=== PATIENT | female | born 1995 | race Caucasian/White ===

== ENCOUNTER 2017-02-09 20:20 | Emergency (ER) | payer BC ==
[2017-02-09 20:39] VITALS: BP 114/82
--- NOTE | 2017-02-09 20:50 | UC ---
Complaint Female HPI - HPI Summary HPI Summary: Dysuria and blood in urine starting a week ago. Seemed to be going away with fluids and cranberry juice, now blood and pain returned today. Denies fever or vomiting. - History Of Current Complaint Chief Complaint: UCGU Stated Complaint: BLOOD IN URINE Time Seen by Provider: 02/09/17 20:28 Hx Obtained From: Patient Hx Last Menstrual Period: 01/20/17 ?: No Onset/Duration: Gradual Onset, Lasting Days Timing: Constant Severity Initially: Moderate Severity Currently: Mild Character: Burning Aggravating Factor(s): Urination Associated Signs And Symptoms: Positive: Negative - Allergies/Home Medications Allergies/Adverse Reactions: Allergies Allergy/AdvReac Type Severity Reaction Status Date / Time No Known Allergies Allergy Verified 02/09/17 20:38 PMH/Surg Hx/FS Hx/Imm Hx Previously Healthy: Yes - Surgical History Surgical History: Yes Surgery Procedure, Year, and Place: [id number]. lasik - Family History Known Family History: Positive: Hypertension - Social History Alcohol Use: Rare Substance Use Type: None Smoking Status (MU): Never Smoked Tobacco Review of Systems Constitutional: Negative Skin: Negative Eyes: Negative ENT: Negative Respiratory: Negative Cardiovascular: Negative Gastrointestinal: Negative Genitourinary: Dysuria, Hematuria, Frequency Motor: Negative Neurovascular: Negative Musculoskeletal: Negative Neurological: Negative Psychological: Negative All Other Systems Reviewed And Are Negative: Yes Physical Exam Triage Information Reviewed: Yes Appearance: Well-Appearing, No Pain Distress, Well-Nourished Vital Signs: Initial Vital Signs Temp 99.1 F 02/09/17 20:30 Pulse 102 02/09/17 20:30 Resp 18 02/09/17 20:30 BP 114/82 02/09/17 20:30 Pulse Ox 100 02/09/17 20:30 Vital Signs Reviewed: Yes Eye Exam: Normal Eyes: Positive: Conjunctiva Clear ENT Exam: Normal ENT: Positive: Normal ENT inspection, Hearing grossly normal, Pharynx normal, TMs normal Dental Exam: Normal Neck exam: Normal Respiratory Exam: Normal Respiratory: Positive: Chest non-tender, Lungs clear, Normal breath sounds, No respiratory distress, No accessory muscle use Cardiovascular Exam: Normal Cardiovascular: Positive: RRR, No Murmur Abdomen Description: Negative: CVA Tenderness (R), CVA Tenderness (L) Musculoskeletal Exam: Normal Neurological Exam: Normal Neurological: Positive: Alert Psychological Exam: Normal Skin Exam: Normal Complaint Female Dx - Differential Dx/Diagnosis Provider Diagnoses: UTI. Elevated blood pressure due to discomfort Discharge - Discharge Plan Condition: Stable Disposition: HOME Prescriptions: Nitrofurantoin Monohyd Macro [Macrobid] 100 mg PO BID #9 cap Patient Education Materials: Urinary Tract Infection in Women (ED) Additional Instructions: Call or come back if you do not have clear improvement in the next 2 days.
[2017-02-09] MEDS ORDERED: Nitrofurantoin Macrocrystals* 50 MG CAP PO ONE (20:51)
== END 2017-02-09 21:10 | disposition home or self-care (01) ==
LOC: UCEAST 20:20
DX: N39.0 Urinary tract infection, site not specified (principal); R03.0 Elevated blood-pressure reading, without diagnosis of hypertension
CPT/HCPCS: 81003; 84702; 87077; 87086; 87186; 99202; A9270-GY; G0463

== ENCOUNTER 2017-08-26 15:50 | Emergency (ER) | payer BC ==
[2017-08-26 16:03] VITALS: BP 106/67
--- NOTE | 2017-08-26 16:38 | UC ---
Complaint Female HPI - HPI Summary HPI Summary: 22 y/o female presents to the urgent care c/o RT eye redness and pain for the past 3 days. Pt also reports burning and frequency on urination for the past 2 days. Pt has not taken anything to alleviate symptoms. She states about 1 hr she noticed the red bump in her Rt lower eye lid burst and she has a yellowish drainage coming out. Pain is 4/10. Pt denies visual disturbance, fever, lower back pain, pelvic pain, vaginal discharge,SOB, chest pain, abdominal pain, N/V/ D. LMP: 08/20/2017, No Hx of STD's - History Of Current Complaint Chief Complaint: UCGU Stated Complaint: EYE IRRITATION, AND BURNING URINATION Time Seen by Provider: 08/26/17 16:18 Hx Obtained From: Patient Hx Last Menstrual Period: 08/20/17 ?: No Onset/Duration: Gradual Onset, Lasting Days - 3 days, Still Present, Worse Since - today Timing: Constant Severity Initially: Mild Severity Currently: Moderate Pain Intensity: 4 Pain Scale Used: 0-10 Numeric Character: Burning Aggravating Factor(s): Urination Alleviating Factor(s): Nothing Associated Signs And Symptoms: Positive: Negative. Negative: Fever, Back Pain, Vaginal Bleeding/Discharge, Vaginal Discharge, Genital Swelling - Risk Factors Ectopic Risk Factor: Negative - Allergies/Home Medications Allergies/Adverse Reactions: Allergies Allergy/AdvReac Type Severity Reaction Status Date / Time No Known Allergies Allergy Verified 08/26/17 15:59 PMH/Surg Hx/FS Hx/Imm Hx Previously Healthy: Yes - Pt denies PMHX - Surgical History Surgical History: Yes Surgery Procedure, Year, and Place: [id number]. lasik - Family History Known Family History: Positive: Hypertension, Diabetes Family History: Hypothyrodism - Social History Occupation: Student Lives: With Family Alcohol Use: Rare Substance Use Type: None Smoking Status (MU): Never Smoked Tobacco - Immunization History Vaccination Up to Date: Yes Review of Systems Constitutional: Negative Skin: Negative Eyes: Eye Redness - Rt lower wyw lid with redness, pain and purulent discharge ENT: Negative Respiratory: Negative Cardiovascular: Negative Gastrointestinal: Negative Genitourinary: Dysuria, Frequency Motor: Negative Neurovascular: Negative Musculoskeletal: Negative Neurological: Negative Psychological: Negative Is Patient Immunocompromised?: No All Other Systems Reviewed And Are Negative: Yes Physical Exam Triage Information Reviewed: Yes Vital Signs: Initial Vital Signs Temp 97.4 F 08/26/17 16:00 Pulse 90 08/26/17 16:00 Resp 20 08/26/17 16:00 BP 106/67 08/26/17 16:00 Pulse Ox 100 08/26/17 16:00 - Additional Comments Vital Signs Reviewed: Yes General: Well appearing, well nourished female in no apparent pain distress Eyes: Positive: Conjunctiva Inflamed - Visual acuity: WNL,Visual knox: full to confrontation.mild periorbital soft tissue swelling at the RT lower eyelid with erythema and and white small pustule in the interior medial side of eyelid with purulent discharge, tender to palpation. PERRLA, EOMI intact w/out limitation or complaint of pain. eyelashes clear. LF Eye WNL . No ciliary flush. No chemosis, No photophobia. Normal fundoscopic exam; no proptosis, exophthalmos, nystagmus. ENT: Positive: Normal ENT inspection, Hearing grossly normal, Pharynx normal, Nasal congestion, Nasal drainage - B/L external ear canal impactec with cerumen unable to see TM's, no Tonsillar swelling or exudate Neck: Positive: Supple, Nontender, No Lymphadenopathy Respiratory: Positive: Chest nontender, Lungs clear, Normal breath sounds, No respiratory distress Cardiovascular: Positive: RRR, No Murmur, Pulses Normal, Brisk Capillary Refill Abdomen Description: Positive: Nontender, No Organomegaly, Soft. Negative: CVA Tenderness (R), CVA Tenderness (L) Bowel Sounds: Positive: Present Musculoskeletal: Positive: Strength Intact, ROM Intact, No Edema Neurological Exam: Normal Psychological Exam: Normal Skin Exam: Normal Complaint Female Dx - Course Course Of Treatment: 22 y/o female presents to the urgent care c/o RT eye redness and pain for the past 3 days. Pt also reports burning and frequency on urination for the past 2 days. Pt has not taken anything to alleviate symptoms. She states about 1 hr she noticed the red bump in her Rt lower eye lid burst and she has a yellowish drainage coming out. Pain is 4/10. Pt denies visual disturbance, fever, lower back pain, pelvic pain, vaginal discharge, SOB, chest pain, abdominal pain, N/V/D.LMP;08/20/2017, No Hx of STD's. Hx obtained. Pt with a internal hordeolum, B/L exteranl ears with cerumen impaction and dysuria on examination. Pt given. Pt Rx Erythromycin Ophthalmic Ointment.First dose given here since she states she will travel to [facility] tomorrow and her medication is free there. PT advised to apply warm compresses and massage the eye with gentle pressure 4-5 times for 10-15min throughout the day. Then apply ABX and if not improvement of symptoms to f/u with exercise planner or PCP for further evaluation and treatment. AU: +leukoesteraces and blood. Pt will be Tx prophylactically for UTI. However erine sent for culture. Pt will be notified of results. Pt Rx Macrobid and Pyridium PO for Dysuria. PT understood and agreed with D/c instructions. - Differential Dx/Diagnosis Differential Diagnosis/HQI/PQRI: Cervicitis, Renal Colic, Sexually Transmitted Disease, Ureteral Stone, Urinary Tract Infection, Other - hordeolum, blepheritis , conjuntivitis Provider Diagnoses: 1- Dysuria. 2- RT inferior eyelid with internal hordeolum. 3-B/L external ear canals with cerumen impaction Discharge - Discharge Plan Condition: Stable Disposition: HOME Prescriptions: Carbamide Peroxide 6.5% OTIC* [DEBROX 6.5% Otic*] 5 drop BOTH EARS BID #1 bottle Erythromycin TOPICAL GEL* [Erythromycin OPTH OINT*] 1 applic TOPICAL TID #1 oint Nitrofurantoin Monohyd Macro [Macrobid] 100 mg PO BID #10 cap Phenazopyridine TAB* [Pyridium 100 mg TAB*] 100 mg PO TID #6 tab Patient Education Materials: Urinary Tract Infection in Women (ED), Cerumen Impaction (ED), Stye (ED) Referrals: [facility] [Outside] - If Needed Ruiz Granda MD [Medical Doctor] - If Needed Additional Instructions: 1- Please take Macrobid 100mg PO x 7 days. Pyridium 100 mg PO TID x 2 days to alleviate urinary symptoms. Increase increase fluid intake. drink cranberry juice. 2-Urine sent for culture if any abnormality, you will be notified for further treatment. 3-Please apply ophthalmic ointment in your son's RT eye as directed. Please apply warm compresses and massage the eye with gentle pressure 4-5 times for 10- 15min throughout the day 4- Apply otic drops on both ear as directed to soften the cerumen. 5-If symptoms do not improve please return to the urgent care or f/u with her PCP.
[2017-08-26] MEDS: Erythromycin OPTH OINT* APPLIC OINT RIGHT EYE ONE ×2 (17:07→17:08)
--- NOTE | 2017-08-28 15:57 | ED ---
Progress - Progress Note Progress Note: no change Course/Dx - Course Course Of Treatment: 22 y/o female presents to the urgent care c/o RT eye redness and pain for the past 3 days. Pt also reports burning and frequency on urination for the past 2 days. Pt has not taken anything to alleviate symptoms. She states about 1 hr she noticed the red bump in her Rt lower eye lid burst and she has a yellowish drainage coming out. Pain is 4/10. Pt denies visual disturbance, fever, lower back pain, pelvic pain, vaginal discharge, SOB, chest pain, abdominal pain, N/V/D.LMP;08/20/2017, No Hx of STD's. Hx obtained. Pt with a internal hordeolum, B/L exteranl ears with cerumen impaction and dysuria on examination. Pt given. Pt Rx Erythromycin Ophthalmic Ointment.First dose given here since she states she will travel to [facility] tomorrow and her medication is free there. PT advised to apply warm compresses and massage the eye with gentle pressure 4-5 times for 10-15min throughout the day. Then apply ABX and if not improvement of symptoms to f/u with oil rag washer or PCP for further evaluation and treatment. AU: +leukoesteraces and blood. Pt will be Tx prophylactically for UTI. However erine sent for culture. Pt will be notified of results. Pt Rx Macrobid and Pyridium PO for Dysuria. PT understood and agreed with D/c instructions. - Diagnoses Provider Diagnoses: UTI (urinary tract infection)
== END 2017-08-26 17:30 | disposition home or self-care (01) ==
LOC: UCEAST 15:50
DX: H00.012 Hordeolum externum right lower eyelid (principal); R30.0 Dysuria; H61.23 Impacted cerumen, bilateral
CPT/HCPCS: 81003; 87077; 87086; 87186; 99212; A9270-GY; G0463

== ENCOUNTER 2018-08-01 03:48 | Emergency (ER) | payer BC ==
--- NOTE | 2018-08-01 04:03 | ED ---
Headache - HPI Summary HPI Summary: Patient is a 22 y/o F w/ c/o headache onsetting 1700 last night. She states that she hit her head against her roommate's head when they were reaching for the same object. Patient reports headache worsened 1999 yesterday and notes that it has moved from the front of her head to the back of her head. She denies N/V, photophobia and LOC. Patient is not on anticoagulants. PMHx of headaches is denied. Pros and cons of CT Head were discussed, patient would prefer not to receive CT. On triage, pain is rated 3/10, nothing is noted to aggravate/alleviate Sx. Home medications and allergies are reviewed. - History Of Current Complaint Chief Complaint: EDHeadInjury Stated Complaint: HEAD INJURY Time Seen by Provider: 08/01/18 03:56 Hx Obtained From: Patient Hx Last Menstrual Period: 08/20/17 Onset/Duration: Started days ago - onset yesterday 1700, Still Present Initially Headache Was: Mild Currently Pain Is: Current Pain Scale(0-10)= - 3/10, Mild - 3/10 on triage Timing: Constant Location of Headache: Frontal - original location, Occipital - current Aggravating Factor: Nothing Allevating Factors: Nothing Associated Signs And Symptoms: Negative - Allergies/Home Medications Allergies/Adverse Reactions: Allergies Allergy/AdvReac Type Severity Reaction Status Date / Time No Known Allergies Allergy Verified 08/01/18 03:52 PMH/Surg Hx/FS Hx/Imm Hx Endocrine/Hematology History: Denies: Hx Diabetes, Hx Thyroid Disease Cardiovascular History: Denies: Hx Hypertension Respiratory History: Denies: Hx Asthma, Hx Chronic Obstructive Pulmonary Disease (COPD) GI History: Denies: Hx Ulcer Neurological History: Denies: Hx Headaches - Cancer History Cancer Type, Location and Year: denies - Surgical History Surgery Procedure, Year, and Place: [id number]. [place] Infectious Disease History: No Infectious Disease History: Denies: Hx Clostridium Difficile, Hx Hepatitis, Hx Human Immunodeficiency Virus (HIV), Hx of Known/Suspected MRSA, Hx Shingles, Hx Tuberculosis, Hx Known/ Suspected VRE, Hx Known/Suspected VRSA, History Other Infectious Disease, Traveled Outside the [place] in Last 30 Days - Family History Known Family History: Positive: Hypertension, Diabetes Family History: Hypothyrodism - Social History Alcohol Use: Rare Substance Use Type: Reports: None Smoking Status (MU): Never Smoked Tobacco Review of Systems Positive: Other - POSITIVE - HEAD INJURY Negative: Photophobia Negative: Vomiting, Nausea Positive: Headache. Negative: Syncope - no loc All Other Systems Reviewed And Are Negative: Yes Physical Exam - Summary Physical Exam Summary: VITAL SIGNS: Reviewed. GENERAL: Patient is a well-developed and nourished female who is lying comfortable in the stretcher. Patient is not in any acute respiratory distress. HEAD AND FACE: No signs of trauma. No ecchymosis, hematomas or skull depressions. No sinus tenderness. EYES: PERRLA, EOMI x 2, No injected conjunctiva, no nystagmus. EARS: Hearing grossly intact. Ear canals and tympanic membranes are within normal limits. MOUTH: Oropharynx within normal limits. NECK: Supple, trachea is midline, no adenopathy, no JVD, no carotid bruit, no c- spine tenderness, neck with full ROM. CHEST: Symmetric, no tenderness at palpation LUNGS: Clear to auscultation bilaterally. No wheezing or crackles. CVS: Regular rate and rhythm, S1 and S2 present, no murmurs or gallops appreciated. ABDOMEN: Soft, non-tender. No signs of distention. No rebound no guarding, and no masses palpated. Bowel sounds are normal. EXTREMITIES: FROM in all major joints, no edema, no cyanosis or clubbing. NEURO: Alert and oriented x 3. No acute neurological deficits. Speech is normal and follows commands. SKIN: Dry and warm Triage Information Reviewed: Yes Vital Signs On Initial Exam: Initial Vitals Temp Pulse Resp BP Pulse Ox 99.6 F 83 16 110/72 97 08/01/18 03:49 08/01/18 03:49 08/01/18 03:49 08/01/18 03:49 08/01/18 03:49 Vital Signs Reviewed: Yes Diagnostics - Vital Signs Vital Signs Temp Pulse Resp BP Pulse Ox 08/01/18 03:49 99.6 F 83 16 110/72 97 - Laboratory Lab Statement: Any lab studies that have been ordered have been reviewed, and results considered in the medical decision making process. Headache Course/Dx - Course Course Of Treatment: Patient is a 22 y/o F w/ c/o headache onsetting 1700 last night. She states that she hit her head against her roommate's head when they were reaching for the same object. Patient reports headache worsened 1999 yesterday and notes that it has moved from the front of her head to the back of her head. She denies N/V, photophobia and LOC. Patient is not on anticoagulants. PMHx of headaches is denied. Pros and cons of CT Head were discussed, patient would prefer not to receive CT. Physical exam was unremarkable. During ED course, patient received Tylenol 975 mg PO ED ONCE ONE. Patient was discharged to home, instructed to follow up with PCP. - Diagnoses Provider Diagnoses: Head injury Discharge - Sign-Out/Discharge Documenting (check all that apply): Patient Departure - discharge - Discharge Plan Condition: Stable Disposition: HOME Patient Education Materials: Head Injury (ED) Referrals: [facility] [Outside] - 2 Days Additional Instructions: RETURN TO THE EMERGENCY DEPARTMENT FOR CHANGING OR WORSENING SYMPTOMS. FOLLOW UP WITH PRIMARY CARE PHYSICIAN IN 1-2 DAYS. - Attestation Statements Document Initiated by Scribe: Yes Documenting Scribe: MELISSA BOYD Provider For Whom Scribe is Documenting (Include Credential): ELADIO BRAN MD Scribe Attestation: IMELISSA , scribed for ELADIO BRAN MD on 08/01/18 at 0418.
[2018-08-01] MEDS ORDERED: Acetaminophen TAB* 325 MG PO ONE (04:10)
[2018-08-01 04:11] VITALS: BP 116/72
== END 2018-08-01 04:24 | disposition home or self-care (01) ==
LOC: ED 03:48
DX: S09.90XA Unspecified injury of head, initial encounter (principal); W50.0XXA Accidental hit or strike by another person, initial encounter; Y92.9 Unspecified place or not applicable
CPT/HCPCS: 99282; A9270-GY

== ENCOUNTER 2018-12-22 08:28 | Emergency (ER) | payer BC ==
[2018-12-22 08:41] VITALS: BP 104/69
--- NOTE | 2018-12-22 09:43 | UC ---
Abdominal Pain Female HPI - HPI Summary HPI Summary: 23 you with 2 days of nausea, vomiting, diarrhea. Previous hx of gastroenteritis. No allergies. No hospitalizations. Patient states that she is on control pills and her last intercourse was 4 months ago. She has had 2 episodes of morning nausea and vomiting yesterday and this morning. She then was better during the day but ate a [employer]. She developed diarrhea this morning. She denies travel. She denies unusual ingestion. - History of Current Complaint Chief Complaint: UCGeneralIllness Stated Complaint: VOMITTING STOMACH PAIN Time Seen by Provider: 12/22/18 09:30 Hx Last Menstrual Period: 12/08/30 Pain Intensity: 0 Allergies/Adverse Reactions: Allergies Allergy/AdvReac Type Severity Reaction Status Date / Time No Known Allergies Allergy Verified 12/22/18 08:41 PMH/Surg Hx/FS Hx/Imm Hx - Additional Past Medical History Additional PMH: PMH noncontributory to present complaint. No admissions or surgeries. Family hx: DM Social hx: Vet student - Surgical History Surgical History: Yes Surgery Procedure, Year, and Place: [id number]. lasik - Family History Known Family History: Positive: Hypertension, Diabetes Family History: Hypothyrodism - Social History Occupation: Student Alcohol Use: Rare Substance Use Type: None Smoking Status (MU): Never Smoked Tobacco - Immunization History Vaccination Up to Date: Yes Review of Systems All Other Systems Reviewed And Are Negative: Yes Skin: Positive: Negative Respiratory: Positive: Negative. Negative: Shortness Of Breath, Cough Cardiovascular: Positive: Negative. Negative: Palpitations Gastrointestinal: Positive: Abdominal Pain - minimal "gurgling" no pain, Vomiting - yesterday and the day before, once in the morning, Diarrhea - jis morning, Nausea Genitourinary: Positive: Negative Is Patient Immunocompromised?: No Physical Exam - Summary Physical Exam Summary: Appearance: The patient is well-appearing, is in no pain or distress, and is well-nourished. Eyes: Conjunctiva are clear. Pupils are equal and reactive to light and accommodation. Extra ocular muscle movement is intact. ENT: The hearing is grossly normal, the pharynx is normal, and the TMs are normal. There is no muffled or hoarse voice. No stridor. Neck: The neck is supple and there is no lymphadenopathy. Respiratory: The chest is nontender to palpation and without crepitus. The lungs are clear, there are normal breath sounds, and there is no respiratory distress. No wheezes, rales or rhonchi. Cardiovascular: Heart sounds reveal a regular rate and rhythm. There are no clicks, rubs or murmurs. There are no carotid bruits or thrills. Circulation is grossly intact. Abdomen: The abdomen is soft and nontender. There is no organomegaly. Bowel sounds are present and within normal limits. No point tenderness at McBurneys point. Musculoskeletal: Strength is intact. The patient moves all extremities. Neurological: The patient is alert. Motor and sensory are examination grossly intact. Speech is normal. Psychological: The patient displays age appropriate behavior Skin: Negative for rashes. Vital Signs: Initial Vital Signs Temp 98 F 12/22/18 08:39 Pulse 97 12/22/18 08:39 Resp 16 12/22/18 08:39 BP 104/69 12/22/18 08:39 Pulse Ox 100 12/22/18 08:39 Abd Pain Female Course/Dx - Course Course Of Treatment: This is a 23 yo female with complaint of nausea, vomiting x 2 and diarrhea this morning. This condition began 2 days ago. She has no abdominal pain. In the [facility], patients vital signs are within normal limits. Physical exam reveals a comfortable healthy appearing 23-year-old female. She is resting supine. There is no abdominal tenderness. There is "gurgling" and hyperactive bowel sounds. The patient can ambulate and jump in the air without abdominal discomfort. Patient denies blood in stool or fever. She is on control pills. I diagnosis is probable viral gastroenteritis. Given her Zofran for nausea and she can also take Benadryl. She will follow up if this is not resolved and her stool can be cultured, as needed. MEDICATIONS REVIEWED. HYPERTENSION STATUS REVIEWED. - Differential Dx/Diagnosis Differential Diagnosis: Other Provider Diagnosis: Gastroenteritis Discharge - Sign-Out/Discharge Documenting (check all that apply): Patient Departure All imaging exams completed and their final reports reviewed: No Studies - Discharge Plan Condition: Stable Disposition: HOME Prescriptions: Ondansetron ODT TAB* [Zofran Odt TAB*] 4 mg PO Q6H #10 tab.odt MDD 3 Patient Education Materials: Gastroenteritis (DC) Referrals: No Primary Care Phys,NOPCP [Primary Care Provider] - Additional Instructions: WE DISCUSSED: PLEASE SEEK CARE AT THE EMERGENCY DEPARTMENT IF SYMPTOMS WORSEN OR IF NEW SYMPTOMS DEVELOP. FOLLOW UP WITH YOUR PRIMARY CARE PHYSICIAN IF CONDITION CONTINUES BEYOND 3 DAYS WITHOUT IMPROVEMENT. Stay well hydrated. We are open from 7 a.m. to 10 p.m. Call us with any questions or concerns. YOUR DIAGNOSIS IS: viral gastroenteritis. YOUR PRESCRIPTION RECOMMENDATION IS: Zofran for nausea; you can also take diphenhydramine. OTHER INSTRUCTIONS: See attached information. Simplify diet. To help you sleep: If you feel as if you want to calm down and get sleepy, over the counter diphenhydramine (Benadryl and other brand names), 25 mg up to every 8 hours may be useful. It can also help with nausea. Please check with the pharmacist if you have questions about your allergies to these medications. Please check with the pharmacist if you have questions about your allergies to these medications. - Billing Disposition and Condition Condition: STABLE Disposition: Home
== END 2018-12-22 09:58 | disposition home or self-care (01) ==
LOC: UCEAST 08:28
DX: K52.9 Noninfective gastroenteritis and colitis, unspecified (principal)
CPT/HCPCS: 99212; G0463